=== PATIENT | male | born 1975 | race Caucasian/White ===

== ENCOUNTER 2019-06-20 17:19 | Observation (INO) ==
[2019-06-20 17:36] LABS: Hematocrit 43.6 % (37.5-50.1); Hemoglobin 15.1 g/dL (12.9-16.9); Mean Corpuscular HGB Conc 34.6 g/dL (31.6-35.5); Mean Corpuscular Hemoglobin 30.7 pg (28.0-33.3); Mean Corpuscular Volume 88.6 fL (83.0-100.0); Mean Platelet Volume 9.7 fL (9.4-12.4); Platelet Count 277 K/mcL (140-400); Red Blood Count 4.92 M/mcL (4.19-5.50); Red Cell Distribution Width 12.4 % (11.5-14.5); White Blood Count 8.1 K/mcL (4.3-11.1)
[2019-06-20] MEDS ORDERED: Isovue-370 500 ML BOTTLE IVP ONE (17:40)
[2019-06-20 17:43] LABS: INR 1.1; Prothrombin Time 12.8 Seconds (9.4-12.1)
[2019-06-20 17:57] LABS: BUN/Creatinine Ratio 15 (6-26); Blood Urea Nitrogen 13 mg/dL (6-20); Carbon Dioxide 26 mEq/L (23-29); Chloride 106 mEq/L (98-107); Glucose 84 mg/dL (70-105); Osmolality,Calculated 287 (280-300); Potassium 3.4 mEq/L (3.5-5.1); Sodium 139 mEq/L (136-145); Troponin I < 0.03 ng/mL (< 0.04); eGFR For African Americans > 60 (> 60); eGFR For Non-African Americans > 60 (> 60)
[2019-06-20] MEDS ORDERED: Aspirin 81 MG TAB.CHEW PO ONE (18:49)
[2019-06-20] MEDS ORDERED: Naloxone 0.4 MG/ML INJ IVP PRN ×2 (20:44→21:35)
[2019-06-20] MEDS ORDERED: Acetaminophen 325 MG TABLET PO PRN (20:44)
[2019-06-20 22:27] LABS: Chol/HDL Ratio 2.7 (0-4.9)
[2019-06-20 23:39] LABS: Estimated Average Glucose 114 mg/dl
[2019-06-21] MEDS ORDERED: Nicotine 2 MG GUM BC PRN (01:08)
[2019-06-21 01:14] LABS: Bilirubin,Urine Negative (Negative); Blood,Urine Negative (Negative); Glucose,Urine (UA) Normal (Normal); Ketones,Urine Negative (Negative); Leukocyte Esterase,Urine Negative (Negative); Nitrite,Urine Negative (Negative); Protein,Urine Negative (Neg-Trace); Specific Gravity,Urine > 1.030 (1.010-1.025); Urobilinogen,Urine Normal (Normal)
[2019-06-21 01:15] LABS: Bacteria,Urine None Seen per hpf (None-Few); Hyaline Casts,Urine None Seen per lpf (None-Few); RBC,Urine 0-3 per hpf (0-3); Squamous Epithelial Cell,Urine None Seen per lpf (None-Few)
[2019-06-21 01:19] LABS: Clarity,Urine Clear (Clear); Color,Urine Yellow (Yellow)
[2019-06-21 01:23] LABS: Amphetamine Screen,Urine Negative ng/mL (Cutoff=1000); Barbiturate Screen,Urine Negative ng/mL (Cutoff=200); Benzodiazepines Screen,Urine Negative ng/mL (Cutoff=200); Cannabinoid Screen,Urine Negative ng/mL (Cutoff = 50); Cocaine Screen,Urine Negative ng/mL (Cutoff= 300); Opiate Screen,Urine Negative ng/mL (Cutoff=300); Phencyclidine Screen,Urine Negative ng/mL (Cutoff=25)
[2019-06-21 03:55] LABS: Hematocrit 44.4 % (37.5-50.1); Hemoglobin 15.2 g/dL (12.9-16.9); Mean Corpuscular HGB Conc 34.2 g/dL (31.6-35.5); Mean Corpuscular Volume 87.7 fL (83.0-100.0); Platelet Count 267 K/mcL (140-400); Red Blood Count 5.06 M/mcL (4.19-5.50); Red Cell Distribution Width 12.6 % (11.5-14.5)
[2019-06-21 03:59] LABS: INR 1.2; Prothrombin Time 13.6 Seconds (9.4-12.1)
[2019-06-21 04:20] LABS: BUN/Creatinine Ratio 15 (6-26); Blood Urea Nitrogen 13 mg/dL (6-20); Calcium 8.9 mg/dL (8.6-10.3); Carbon Dioxide 27 mEq/L (23-29); Chloride 109 mEq/L (98-107); Glucose 118 mg/dL (70-105); Osmolality,Calculated 291 (280-300); Potassium 4.1 mEq/L (3.5-5.1); Sodium 140 mEq/L (136-145); eGFR For African Americans > 60 (> 60); eGFR For Non-African Americans > 60 (> 60)
[2019-06-21] MEDS ORDERED: Aspirin 81 MG TAB.CHEW PO SCH (09:00)
[2019-06-21] MEDS ORDERED: Nicotine 21 MG PATCH.TD24 TD SCH (09:00)
[2019-06-21 15:17] VITALS: BP 141/81
== END 2019-06-21 20:37 | disposition home or self-care (01) ==
LOC: EMEROOARM 17:19 → 2NENU 17:19 → SUATTDRO 19:33 → 2NENU 20:01
PROVIDERS: ADMIT Pharmacist; ATTEND Family Medicine